=== PATIENT | female | born 1945 | race Caucasian/White ===

== ENCOUNTER 2024-12-02 10:28 | Outpatient (CLI) | payer MEDICARE ==
--- NOTE | 2024-12-02 11:47 | RADIOLOGY REPORT ---
PROCEDURE: MR MRI LUMBAR SPINE INDICATION: LOW BACK PAIN Exam Date: 12/02/2024 10:45 AM COMPARISON: None TECHNIQUE: MRI lumbar spine without intravenous contrast. FINDINGS: Multilevel disc degeneration. Alignment: Grade 2 retrolisthesis of L5 on S1. Vertebrae: Vertebral body height is well maintained without evidence of a recent compression fracture. Type 1 Modic endplate changes at L2-L3. Conus: Conus medullaris terminates at the L1-L2 level. Following axial levels detailed below: T12-L1: Disc desiccation. Disc extrusion with 4.8 mm of cranial extension. No spinal canal or neural foraminal stenosis. Facet arthrosis. L1-2: Disc desiccation and 4.6 mm disc bulge. Mild spinal canal stenosis. No neural foraminal stenosis. Facet arthrosis. L2-3: Disc desiccation and 4.25 mm disc bulge. Moderate disc height loss. Mild spinal canal stenosis. Mild left subarticular zone stenosis. Mild bilateral foraminal stenosis. Facet arthrosis. L3-4: Disc desiccation and 3.6 mm disc bulge. Mild spinal canal stenosis. Mild left subarticular zone stenosis. Mild left foraminal stenosis. Facet arthrosis. L4-5: Disc desiccation and 3.8 mm disc bulge. Mild bilateral subarticular zone stenosis. Mild bilateral foraminal stenosis. Facet arthrosis. L5-S1: Grade 2 retrolisthesis of L5 on S1 by 3.6 mm. Disc desiccation and 10.3 mm disc bulge. Moderate disc height loss. Mild spinal canal stenosis. Severe bilateral subarticular zone stenosis with bilateral descending S1 nerve root compression. Severe bilateral foraminal stenosis with potential bilateral exiting L5 nerve root compression. Facet arthrosis. IMPRESSION: Multilevel disc degeneration. Multilevel spinal canal stenosis, most pronounced and mild at L5-S1. Multilevel subarticular zone stenosis, most pronounced and severe at L5-S1 with bilateral descending S1 nerve root compression. Multilevel foraminal stenosis, most pronounced and severe at L5-S1 with potential bilateral exiting L5 nerve root compression.
== END 2024-12-02 23:59 | disposition home or self-care (01) ==
LOC: MRI02 10:28
PROVIDERS: ATTEND Family Medicine
DX: M47.817 Spondylosis without myelopathy or radiculopathy, lumbosacral region (principal); M51.379 Other intervertebral disc degeneration, lumbosacral region without mention of lumbar back pain or lower extremity pain; M43.17 Spondylolisthesis, lumbosacral region; M48.07 Spinal stenosis, lumbosacral region; M51.24 Other intervertebral disc displacement, thoracic region
CPT/HCPCS: 72148